=== PATIENT | male | born 1980 | race Asian ===

== ENCOUNTER 2024-01-10 12:13 | Emergency (ER) | payer BC, OTHER, SELFPAY ==
[2024-01-10] VITALS (8 sets, daily range): BP systolic 134–165; BP diastolic 82–112; BMI 30.8
[2024-01-10 12:32] LABS: % Basophils 0.4 % (0-2); % Eosinophils 0.7 % (0-6); % Immature Granulocytes 0.4 % (0-0.5); % Lymphocytes 29.6 % (20.5-51.1); % Monocytes 7.6 % (1.7-9.3); % Neutrophils 61.3 % (42.2-75.2); Absolute Eosinophils 0.1 10^3/uL (0-0.7); Absolute Lymphocytes 2.8 10^3/uL (1.2-3.4); Absolute Monocytes 0.7 10^3/uL (0.1-0.6); Absolute Neutrophils 5.8 10^3/uL (1.4-6.5); Hematocrit 41.3 % (39.0-52.0); Hemoglobin 13.4 g/dL (13.0-18.0); Mean Corp Hgb Conc. 32.4 g/dL (33.0-37.0); Mean Corpuscular Hgb 21.4 pg (27.0-31.0); Mean Corpuscular Volume 66.1 fL (80.0-94.0); Mean Platelet Volume 9.3 fL (7.4-10.4); Nucleated Red Blood Cells % 0 % (-); Platelet Count 311 10^3/uL (130-400); Red Blood Cell Count 6.25 10^6/uL (4.70-6.10); Red Cell Dist. Width 15.9 % (11.5-14.5); White Blood Cell Count 9.5 10^3/uL (4.8-10.8)
[2024-01-10 12:43] LABS: ALT (SGPT) 33 U/L (0-50); AST (SGOT) 26 U/L (17-59); Albumin 4.5 g/dl (3.5-5.0); Alkaline Phosphatase 53 U/L (38-126); Blood Urea Nitrogen 17 mg/dl (9-20); Calcium 9.4 mg/dl (8.4-10.2); Carbon Dioxide 24 mmol/L (22-30); Chloride 106 mmol/L (98-107); Estimated Creatinine Clearance > 125 ml/min; Glucose 110 mg/dl (70-99); Potassium 4.1 mmol/L (3.5-5.1); Sodium 139 mmol/L (135-145); Total Bilirubin 0.4 mg/dl (0.2-1.3); Total Protein 7.3 g/dl (6.3-8.2); eGFR > 60.00
[2024-01-10 12:54] LABS: Troponin I < 0.012 ng/ml
[2024-01-10 17:08] LABS: Troponin I < 0.012 ng/ml
--- NOTE | 2024-01-10 18:33 | ED.GENMED ---
History of Present Illness
General
Chief Complaint: Chest Pain
Source: patient
Exam Limitations: none
Time Seen by Provider: 01/10/24 12:43
Travel History
Have you had any contact with someone who has COVID-19?: No
Do you have any symptoms of coronavirus? Fever > 100 degrees, chills, cough, shortness of breath, sore throat, loss of taste or smell, muscle aches, or headache?: No
History of Present Illness
History of Present Illness:
43-year-old male with a history of stroke, coronary disease, hypertension, hyperlipidemia presents after he developed tingling his left arm and some pain in his left upper back while mowing the lawn. No chest pain. Pain is only in the back. No
headache. No motor weakness. No leg weakness. No leg tingling.
Past History
Past History
ED Past Medical History: CAD, CVA, HTN, Hypercholesterolemia and Seizures
ED Past Surgical History: None
Social History
Tobacco: Smoker
Alcohol: None
Drug: None
Personal: Partner
Living: with roommate
Employment: Employed
Family History
Family History: Other (n/c)
Phy Exam
Physical Exam
Physical Exam:
CONSTITUTIONAL Patient alert and oriented to person, place and time. Well-appearing. Vital signs reviewed.
HEAD atraumatic, normocephalic.
EYES eyelids normal to inspection, Pupils equally round and reactive to light, Extraocular muscles intact, Conjunctiva normal, Sclera normal.
NECK normal range of motion, Trachea midline, no jugular venous distention.
RESPIRATORY CHEST No respiratory distress noted, Chest expansion equal, Bilateral breath sounds clear.
CARDIOVASCULAR regular rate and rhythm, Heart sounds normal.
ABDOMEN abdomen nontender, Bowel sounds normal. No distention.
BACK normal inspection, no obvious deformities
UPPER EXTREMITY range of motion normal, Motor strength normal, no cyanosis, no edema.
LOWER EXTREMITY range of motion normal, Motor strength normal, no cyanosis, no edema.
NEURO Speech normal, No focal motor deficits, Marky coma scale 15, Memory normal, Cranial Nerves intact to screening exam. No pronator drift.
SKIN skin warm, dry, and normal in color.
PSYCHIATRIC patient oriented to person place and time, Normal affect.
Scores
Heart Score for Chest Pain Patients
STEMI patient?: No
History: Slightly or Non-Suspicious
ECG: Normal
Age: </= 45 years
Risk Factors: >/= 3 Risk Factors or History of CAD
Troponin: </= Normal Limit
Heart Score for Chest Pain Patients: 2
Heart Score Risk: 2.5% MACE over next 6 weeks
Course
Orders/Labs/Results
Orders:
Orders
01/10/24 12:16
Electrocardiogram (*1) Urgent
Reason for Study: Chest Pain
EKG- Treatment ONCE
01/10/24 12:23
Complete Blood Count/With Diff Urgent
Comprehensive Metabolic Panel Urgent
Troponin I Urgent
01/10/24 13:15
CR Chest - 2 Views Urgent
Comment:
Reason For Exam: back pain, HTN
01/10/24 13:16
CT Head W/o Iv Contrast Urgent
Comment:
Reason For Exam: LUE tingling
01/10/24 14:48
CT Chest/abd/pelvis Angio W/wo Urgent
Comment:
Reason For Exam: back pain, htn
01/10/24 16:29
ECG [Electrocardiogram (*1)] Urgent
Reason for Study: Chest Pain
EKG- Treatment ONCE
01/10/24 16:32
Troponin I Urgent
Abnormal Lab Results
01/10/24
12:23
RBC 6.25 H 10^6/uL
(4.70-6.10)
MCV 66.1 L fL
(80.0-94.0)
MCH 21.4 L pg
(27.0-31.0)
MCHC 32.4 L g/dL
(33.0-37.0)
RDW 15.9 H %
(11.5-14.5)
Absolute Monos (auto) 0.7 H 10^3/uL
(0.1-0.6)
Glucose 110 H mg/dl
(70-99)
01/10/24 12:23
01/10/24 12:23
Vital Signs
Initial and Last Documented VS:
Initial Vital Signs
Temp Pulse Resp BP Pulse Ox
98.1 F 70 16 140/96 97
01/10/24 12:17 01/10/24 12:17 01/10/24 12:17 01/10/24 12:17 01/10/24 12:17
Last Documented Vital Signs
Temp Pulse Resp BP Pulse Ox
98.1 F 62 21 162/109 99
01/10/24 12:17 01/10/24 18:38 01/10/24 18:38 01/10/24 18:40 01/10/24 18:30
MDM/Problems Addressed
MDM/Problems Addressed:
Uncontrolled hypertension, radiculopathy
*Radiology
Radiology exam reviewed: radiology read reviewed
*Pulse Oximetry
Patient hypoxic: no
*EKG
Interpreted by ED Provider?: Yes
Interpretation: normal
Rate: normal
[place]: left axis deviation
Ischemia: no ischemia
*[employer] Interpretation
Rate: normal
Interpretation: normal
Rhythm: sinus
*Critical Care Note
Total Time (30-74mins, 75-104mins- exclusive of procedures): Not Applicable
Data Reviewed
Review of Other/Old Records Reveals: Discharge Summary (From October 2022 reviewed)
Source: patient
Prescriptions/Medications Considered But Not Given:
Considered antihypertensives but blood pressure is slightly improving without intervention
Patient Management
Escalation/DeEscalation of care consider admission/obs:
Patient was only taking his medication. Suspect radiculopathy given the fact that CTA negative, troponin x 2 negative. EKG unremarkable. Okay for discharge and outpatient follow-up
ED Attending Note
-
Portions of this chart may have been created with voice recognition software.� Occasional wrong word or��sound alike� substitutions may have occurred due to the inherent limitations of voice recognition software.
Discharge Plan
Departure
Patient Disposition: Home (Routine Discharge)
Date of Disposition: 01/10/24
Time of Disposition: 18:33
Patient with high blood pressure during this ER visit?: Yes
Discharge Problem:
Radiculopathy
Instructions: Radiculopathy (DC), BLOOD PRESSURE
Prescriptions:
No Action
aspirin 81 MG tablet,delayed release (DR/EC)
81 mg PO DAILY
metoprolol succinate 50 mg tablet extended release 24 hr
50 mg PO HS
oxybutynin chloride 5 mg Tablet
5 mg PO BID
divalproex 500 mg tablet extended release 24 hr
1,000 mg PO HS
divalproex 250 mg Tablet Extended Release 24 Hr
250 mg PO HS
Referrals:
Stan Morrow, DO [Family Provider] -
Stand Alone Forms: Return to Work
Activity Restrictions/Additional Instructions:
Please see your doctor next 2 to 3 days for follow-up and reevaluation. Return in for chest pain, shortness of breath, weakness of any kind or any other concerns. Please be sure to take your blood pressure medications daily. In addition, please
stop smoking cigarettes.
Interventions
Interventions:
*Risk Screen - Suicide Last Done: 01/10/24 12:19
*General Assessment Last Done: 01/10/24 12:19
*Neglect/Abuse Screening Last Done: 01/10/24 12:19
ED- Fall Risk Assessment Last Done: 01/10/24 12:19
*ED COVID-19 Vaccine History Last Done: 01/10/24 12:17
*Nursing Disposition Last Done: 01/10/24 19:03
ED- Cardiac Assessment Last Done: 01/10/24 12:19
Discharge Date and Time
Discharge Date/Time: 01/10/24 19:03
Print Language: SOMALI
== END 2024-01-10 19:03 | disposition home or self-care (01) ==
LOC: EMR 12:13
PROVIDERS: Emergency Medicine; EMERGENCY PHYSICIAN Emergency Medicine; FAMILY PHYSICIAN Family Medicine
DX: M54.10 Radiculopathy, site unspecified (principal); R07.9 Chest pain, unspecified; M54.6 Pain in thoracic spine; I25.10 Atherosclerotic heart disease of native coronary artery without angina pectoris; I10 Essential (primary) hypertension; E78.00 Pure hypercholesterolemia, unspecified; M54.9 Dorsalgia, unspecified; R56.9 Unspecified convulsions; F17.200 Nicotine dependence, unspecified, uncomplicated; Z86.73 Personal history of transient ischemic attack (TIA), and cerebral infarction without residual deficits; Z88.8 Allergy status to other drugs, medicaments and biological substances
CPT/HCPCS: 99285; 70450; 71046; 71275; 74174; 80053; 84484; 85025; 93005; Q9967